=== PATIENT | male | born 1995 | race African-American/Black ===

== ENCOUNTER 2018-04-25 04:22 | Emergency (ER) | payer OTHER ==
[~2018-04-25] VITALS: Ht 177.8 cm; Wt 74.8 kg
[2018-04-25 04:41] VITALS: BP 159/113
[2018-04-25] MEDS ORDERED: PRED20TA PO (04:56)
[2018-04-25] MEDS ORDERED: LEVO500T59 PO (04:56)
--- NOTE | 2018-04-25 05:04 | PHYS DOC ---
Past Medical History Past Medical History: Asthma, Diabetes-Type I Past Surgical History: No Surgical History Alcohol Use: Occasionally Drug Use: None Adult General Chief Complaint Chief Complaint: ITCHING HPI HPI Patient is a 22 year old male who presents with allergic reaction. Patient states he was recently treated with a four-week course of Bactrim for prostatitis. He only completed 2 weeks of this medication because he had some side effects of the medicine. He also developed some pruritic rash over the entire body. He stopped the medicine 2 days earlier. He presents to the ER today complaining of feeling itchy still and with ongoing rash symptoms. No airway involvement. No fever. No more acute complaints. Review of Systems Review of Systems Constitutional: Denies fever or chills Eyes: Denies HENT: Denies Respiratory: Denies Cardiovascular: No additional information not addressed in HPI GI: Denies abdominal pain : Denies dysuria Integument: as above All other systems were reviewed and found to be within normal limits, except as documented in this note. Allergies Allergies Allergies Coded Allergies Type Severity Reaction Last Updated Verified No Known Drug Allergies 02/25/15 No Physical Exam Physical Exam Constitutional: Well developed, well nourished, no acute distress, non-toxic appearance HENT: Normocephalic, atraumatic, bilateral external ears normal, oropharynx moist Neck: Normal range of motion Lungs & Thorax: Bilateral breath sounds clear to auscultation Skin: diffuse fine papular rash over arms/torso that is pruritic, no hives Extremities: No tenderness Neurologic: Alert and oriented X 3 Current Patient Data Vital Signs Vital Signs Date Time Temp Pulse Resp B/P (MAP) Pulse Ox O2 Delivery O2 Flow Rate FiO2 04/25/18 04:41 97.5 71 16 159/113 (128) 97 Room Air 97.5 EKG EKG [] Radiology/Procedures Radiology/Procedures [] Course & Med Decision Making Course & Med Decision Making Pertinent Labs and Imaging studies reviewed. (See chart for details) 04:45: Patient is seen and examined. Patient has no acute respiratory involvement. He does have symptoms that seem consistent with medication reaction. He was not fully treated for prostatitis. No fevers. Denies pain with defecation. No urinary symptoms or urethral discharge. Plan today will be to give 2 weeks of Levaquin to further treat his prostate infection. Also, he is placed on a prednisone taper. He is encouraged to use Benadryl at night for his symptoms if needed and Claritin during the day. Follow up with primary care doctor or return to the ER for any new or worsening symptoms. Christina Disclaimer Christina Disclaimer This electronic medical record was generated, in whole or in part, using a voice recognition dictation system. Departure Departure Impression: Primary Impression: Allergic reaction Disposition: HOME, SELF-CARE Condition: GOOD Patient Instructions: Allergies, Generic Additional Instructions: Take the prescriptions as directed Take benadryl in the evenings for itching symptoms Take claritin during the day for itching symptoms. Scripts Prednisone (PREDNISONE) 20 Mg Tablet 20 MG PO UD, #20 TAB Take 3 tablets by mouth daily with breakfast for 3 days. Then take 2 tablets daily for 3 days. Then take one tablet daily for 3 days. Then take one half tablet daily until gone Prov: RADHA YU DO 04/25/18 Levofloxacin (LEVAQUIN) 500 Mg Tablet 500 MG PO DAILY for 14 Days, #14 TAB Prov: RADHA YU DO 04/25/18 RADHA YU DO Apr 25, 2018 05:04
== END 2018-04-25 05:00 | disposition home or self-care (01) ==
LOC: ER 04:22
DX: T78.49XA Other allergy, initial encounter (principal); E10.9 Type 1 diabetes mellitus without complications; J45.909 Unspecified asthma, uncomplicated; X58.XXXA Exposure to other specified factors, initial encounter
CPT/HCPCS: 99283